=== PATIENT | male | born 1935 | race Caucasian/White ===

== ENCOUNTER 2019-06-06 09:47 | Inpatient (IN) ==
[2019-06-06] MEDS ORDERED: NS 1,000 ML IV ONE ×2 (10:16→11:11)
--- NOTE | 2019-06-06 10:41 | Diag Imaging Result Doc PS360 ---
CHEST-2 VIEWS - 06/06/2019 INDICATION: cough COMPARISON: 04/24/2019 FINDINGS: There has been increase in size of the soft tissue density masslike area in the lingula. This measures about 7 cm. There is new infiltrate in the right upper lobe as well. No pneumothorax or pleural effusion. IMPRESSION: Repeat chest CT recommended, preferably with intravenous contrast. Electronically signed by Ángel Corral 06/06/2019 10:39 AM
[2019-06-06 10:53] LABS: BASO# 0.05 X1000 (0.0-0.2); BASO% 0.1 % (0.0-0.8); EOS% 0.2 % (0.0-10.0); HEMATOCRIT 31.9 % (42.0-52.0); HEMOGLOBIN 10.6 g/dL (14.0-18.0); IMM GRAN# 0.53 X1000 (0.0-0.04); IMM GRAN% 1.2 % (0.0-0.5); LYMPH# 1.47 X1000 (1.2-3.4); LYMPH% 3.2 % (20.5-51.1); MCH 31.1 PG (27-31); MCHC 33.2 g/dL (33-37); MCV 93.5 FL (81-99); MONO# 2.49 X1000 (0.11-0.59); MONO% 5.4 % (1.7-9.3); MPV 8.9 FL (7.4-10.4); NEUT% 89.9 % (42.2-75.2); PLT 494 X1000 (130-400); RBC 3.41 XMIL (4.7-6.1); RDW 15.3 % (11.5-14.5); WBC 45.74 X1000 (4.8-10.8)
[2019-06-06] MEDS ORDERED: NS 500 ML IV ONE (11:11)
[2019-06-06] MEDS ORDERED: MAXIPIME 2 GM in NS 100 ML IV ONE (11:11)
[2019-06-06] MEDS ORDERED: TYLENOL PO PRN (11:14)
[2019-06-06] MEDS ORDERED: ZOFRAN IV PRN (11:14)
[2019-06-06] MEDS ORDERED: VANCOMYCIN IV PER PHARMACY MISC SCH (11:15)
--- NOTE | 2019-06-06 11:23 | PROVIDER DOCUMENTATION ---
This chart was entered by Jocelyn Dolan Scribe, acting as scribe for Domo Carrasco MD. HPI-General Adult - General Chief Complaint: Post Op Complaint Stated Complaint: POST OP COMPLAINT/DR CONTRERAS Time Seen by Provider: 06/06/19 09:59 Source: patient, family ( and daughter) Allergies/Adverse Reactions: Patient Allergies Allergy/AdvReac Type Severity Reaction Status Date / Time butorphanol [From Stadol] Allergy Unknown Verified 06/06/19 10:03 codeine Allergy Unknown Verified 06/06/19 10:03 doxycycline Allergy Unknown Verified 06/06/19 10:03 ibuprofen [From Advil] Allergy Unknown Verified 06/06/19 10:03 Home Medications: Home Medication List Medication Instructions Recorded Confirmed Last Taken Type Allopurinol [Zyloprim] 300 mg PO DAILY 06/06/19 06/06/19 Unknown History Colesevelam [Welchol] 625 mg PO TID 06/06/19 06/06/19 Unknown History Donepezil HCl 10 mg PO DAILY 06/06/19 06/06/19 Unknown History Enalapril Maleate [Vasotec] 5 mg PO BID 06/06/19 06/06/19 Unknown History Memantine [Namenda] 5 mg PO DAILY 06/06/19 06/06/19 Unknown History Pantoprazole [Protonix] 40 mg PO BID 06/06/19 06/06/19 Unknown History Prednisone 5 mg PO TID 06/06/19 06/06/19 Unknown History Spironolactone 12.5 mg PO DAILY 06/06/19 06/06/19 Unknown History Tamsulosin [Flomax] 0.4 mg PO DAILY 06/06/19 06/06/19 Unknown History - History of Present Illness -Gen Adult Nature of Presenting Problems: Pt is a 84 yowm brought into the ED by his and daughter after Dr. Contreras told them to bring him in to be seen for weakness and falling last night. Pt is 2 weeks post op from removal of his left kidney due to cancer. Pt's and daughter stated that the pt has been feeling very weak since and Saturday night fell while trying to go to the bathroom". Pt does not know if he experienced LOC but denies hitting his head. Pt appears dazed and weak but nontoxic in appearance. Location of Pain/Injury: reports: generalized (weakness) Pain Radiation: reports: no radiation Quality of Pain: reports: none Onset/Duration: reports: 2 days ago (started) Timing: reports: getting worse Context/Activities at Onset: reports: light activity Modifying Factors: worse with: movement Associated Symptoms: reports: cough, diarrhea, loss of appetite, shortness of b reath (with movement), syncope, weakness. denies: chest pain, fever/chills, sinus congestion/drainage, nausea, vomiting Similar Symptoms Previously?: No Recently seen or treated by another doctor?: Yes (Dr. Contreras) Review of Systems - Adult - REVIEW OF SYSTEMS - ADULT Constitutional: denies: chills, fever Eyes: reports: no symptoms reported Ears, Nose, Mouth & Throat: reports: no symptoms reported Cardiovascular: reports: see HPI, syncope (Saturday night) Respiratory: reports: see HPI, shortness of breath (w/movement) Gastrointestinal: reports: see HPI, diarrhea (watery for past week). denies: abdominal pain, nausea, vomiting Genitourinary: reports: no symptoms reported Musculoskeletal: reports: see HPI, muscle weakness (generalized) Integumentary: reports: no symptoms reported Neurological: reports: see HPI, loss of balance. denies: dizziness/vertigo, headache/migraines Psychiatric: reports: no symptoms reported Endocrine: reports: no symptoms reported Hematologic/Lymphatic: reports: no symptoms reported Allergic/Immunologic: reports: no symptoms reported All Other Systems: Reviewed and Negative Past History - Adult - PAST MEDICAL HISTORY-ADULT Review of Records: reports: Old Records Reviewed, Nursing Assessment Review, Medications Reviewed, Social history reviewed & non-contributory. Cardiovascular: reports: HTN Gastrointestinal: reports: GERD Neurological: reports: dementia - PRIOR SURGERIES/PROCEDURES Surgical/Procedure History: reports: recent surgery (Left kidney removal due to cancer), cholecystectomy, other (hernia repair) - IMMUNIZATION STATUS Childhood Immunizations: See Nurse Assessment Flu Vaccine: See Nurse Assessment - SOCIAL HISTORY Smoking: non-smoker Substance Use: denies Living Situation: family () Physical Exam-General - PHYSICAL EXAM-ADULT Initial Vital Signs Reviewed: Yes - CONSTITUTIONAL General Appearance: alert, no apparent distress - EYES Eyes: PERRL/EOMI - HEAD, EARS, NOSE, MOUTH & THROAT HENMT: moist mucous membranes - NECK Neck: full range of motion - RESPIRATORY Respiratory: chest non-tender, lungs clear, normal breath sounds - CARDIOVASCULAR Cardiovascular: regular rate, rhythm - GASTROINTESTINAL (ABDOMEN) Abdominal Exam: non tender - MUSCULOSKELETAL Back Exam: no CVA tenderness, no vertebral tenderness Extremity: non-tender - SKIN Integumentary: normal color, normal turgor, warm/dry - PSYCHIATRIC Psych/Mental Status: normal mood/affect, normal thought content, oriented x 3 Progress - PLAN OF CARE/RESULTS Progress/Plan/Lab Results: Vital Signs - 8 hr 06/06/19 09:48 Temperature 98.3 F Pulse Rate 88 Respiratory Rate 20 Blood Pressure 87/40 O2 Sat by Pulse Oximetry 95 Orders Category Date Time Status Cardiac Monitoring DIRECTED Care 06/06/19 10:01 Active ED: Orthostatic Vital Signs (E as directed Care 06/06/19 10:01 Active CHEST-2 VIEWS [RAD] Stat Exams 06/06/19 10:01 Ordered C DIFF TOXIN [STOOL] Stat Lab 06/06/19 10:17 Uncollected CBC WITH ELECTRONIC DIFF [HEME] Stat Lab 06/06/19 10:00 Uncollected CK PROFILE [SP CHEM] Stat Lab 06/06/19 10:00 Uncollected COMPREHENSIVE METABOLIC PANEL [CHEM] Stat Lab 06/06/19 10:00 Uncollected INFLUENZA SCREEN A/B Stat Lab 06/06/19 10:16 Uncollected MAGNESIUM [CHEM] Stat Lab 06/06/19 10:00 Uncollected TROPONIN T Stat Lab 06/06/19 10:00 Uncollected URINALYSIS [URINALYSIS] Stat Lab 06/06/19 10:01 Uncollected 0.9% Sodium Chloride Inj [Ns] 1,000 ml Med 06/06/19 10:30 Ordered IV 150 mls/hr 0.9% Sodium Chloride Inj [Ns] 1,000 ml Med 06/06/19 10:16 Active IV 999 mls/hr EKG [EKG] Stat Ther 06/06/19 10:01 Ordered Result Diagrams: 06/06/19 10:27 - XRAY 1 XRAY Study: Chest Impression: Abnormal (CHEST-2 VIEWS - 06/06/2019 INDICATION: cough COMPARISON: 04/24/2019 FINDINGS: There has been increase in size of the soft tissue density masslike area in the lingula. This measures about 7 cm. There is new infiltrate in the right upper lobe as well. No pneumothorax or pleural effusion. IMPRESSION: Repeat chest CT recommended, preferably with intravenous contrast. Electronically signed by Ángel Corral 06/06/2019 10:39 AM 06/06/19 1039 Interpreting Physician: Ángel Corral MD Dictated Date/Time: 06/06/19 1037 cc: Dequan Contreras MD; Dequan Contreras MD) - CONSULTS/PCP/HOSPITALIST Notification #1 *Consult/PCP/Hospitalist*: Matt Time Discussed: 11:00 Consult Disposition: Will see in ED, Admit Departure - Departure Date of Disposition Decision: 06/06/19 Time of Disposition Decision: 15:00 DIAGNOSIS: Volume depletion, Septic shock Right upper lobe pneumonia Qualifiers: Pneumonia type: due to unspecified organism Qualified Code(s): J18.1 - Lobar pneumonia, unspecified organism Diarrhea Qualifiers: Diarrhea type: unspecified type Qualified Code(s): R19.7 - Diarrhea, unspecified Disposition: ADMITTED INPATIENT 09 Certified Medical Emergency: Emergent Condition: Stable Referrals and Follow-Ups: Dequan Contreras MD [Primary Care Provider] - - Critical Care Note This patient required my direct & personal management of CC.: No Attestation - Physician/ ARTHUR Attestation Patient care was provided by Advanced Practice Provider:: No The physician spent face to face time with patient:: Yes Advanced Practice Provider documentation review:: Supervising physician onsite and consulted in the evaluation and care of this patient. The physician did have a face to face encounter with the patient. This chart was documented by the indicated scribe, (Jocelyn Dolan, Vianney) and accurately reflects the services I performed and decisions made by me, Domo Carrasco MD, as attested by the provider's signature.
[2019-06-06 11:26] LABS: BANDS 7 % (0-1); HYPOCHROM 1+; LYMPHS 4 % (21-51); MONO 4 % (1-9); SEGS 85 % (42-75)
[2019-06-06 11:27] LABS: ANISOCYTOSIS 1+
[2019-06-06 11:34] LABS: ALB/GLOB RATIO 1.7; ALBUMIN 3.3 g/dL (3.5-5.0); CALCIUM 9.6 mg/dL (8.8-10.2); CREATININE 1.6 mg/dL (0.7-1.2); MAGNESIUM 1.5 mg/dL (1.5-2.7); POTASSIUM 4.1 mmol/L (3.5-5.1); TOTAL BILIRUBIN 0.81 mg/dL (0.20-1.00); TOTAL PROTEIN 5.2 g/dL (6.3-8.3)
[2019-06-06] MEDS: NS 1,000 ML IV SCH ×3 (11:34→23:19)
[2019-06-06] MEDS ORDERED: VANCOMYCIN 1 GM/NS 1 GM/250 ML IVPB IV ONE (12:00)
[2019-06-06 12:11] LABS: INR 1.09; PROTIME 14.3 Seconds (11.0-16.0)
[2019-06-06 12:12] LABS: URINE SOURCE CLEAN CATCH
[2019-06-06 12:12] LABS: PTT 33.1 Seconds (22.3-41.8)
[2019-06-06 12:36] LABS: BILIRUBIN URINE NEGATIVE (NEGATIVE); BLOOD URINE NEGATIVE (NEGATIVE); COLOR YELLOW; GLUCOSE URINE NEGATIVE (NEGATIVE); KETONE URINE NEGATIVE (NEGATIVE); LEUKOCYTES URINE NEGATIVE (NEGATIVE); NITRITE URINE NEGATIVE (NEGATIVE); PROTEIN URINE 50 mg/dL (NEGATIVE); SP GRAVITY URINE 1.036; TURBIDITY URINE CLEAR (CLEAR); UROBILINOGEN URINE 2 mg/dL (NORMAL)
[2019-06-06 12:38] LABS: UR EPITHELIAL CELLS <10 /HPF (<10); URINE BACTERIA NEGATIVE /HPF; URINE RBC <10 /HPF (<10); URINE WBC <10 /HPF (<10)
[2019-06-06] MEDS: DUONEB (A & A) INH SCH ×2 (16:45→21:25)
--- NOTE | 2019-06-06 18:27 | EKG Report ---
Test Performed on : 06/06/2019 4:56:44 PM Test Reason : CP Blood Pressure : / mmHG Vent. Rate : 076 BPM Atrial Rate : 076 BPM P-R Int : 166 ms QRS Dur : 140 ms QT Int : 390 ms P-R-T Axes : 048 -56 019 degrees QTc Int : 438 ms Sinus rhythm. with occasional premature ventricular complexes. and premature atrial complexes. Right bundle branch block Left anterior fascicular block Bifascicular block Septal infarct , age undetermined Abnormal ECG Confirmed by Carmine COPELAND, Mikael ([id number]) on 06/08/2019 8:33:11 AM
--- NOTE | 2019-06-06 21:17 | HISTORY AND PHYSICAL ---
CHIEF COMPLAINT: Weakness. HISTORY OF PRESENT ILLNESS: This 84-year-old white male has been hit with several diagnoses over the last couple months including severe esophageal stricture, lung mass in the lingula and left renal mass. A little over week ago he had resection of his left kidney for renal cell cancer. He is recovering from that and has developed a cough. His family stated that he had severe coughing paroxysms last night with nausea. He has been taking all his medications as prescribed, but his appetite and p.o. intake has been poor. They called me on the morning of admission. I advised them to go to the emergency room. He was immediately noted to be hypotensive, although he is in no distress. Further workup revealed an elevated white cell count of 45,000 and questionable right upper lobe infiltrate in addition to enlargement of the mass/infiltrate seen in the lingula on previous studies. The patient's workup which started a couple months ago has been taken sequentially with an EGD and esophageal dilatation followed by Urology consultation and surgery and concomitantly he saw Dr. Singh for his lung mass and he has been following for that. Due to hypotension, elevated white cell count, and questionable infiltrates in his chest x-ray, the patient is admitted for further workup and treatment. PAST MEDICAL HISTORY: 1. Coronary artery disease, hyperlipidemia. 2. Benign prostatic hyperplasia. 3. Hypertension. 4. Hemorrhoids. 5. Diverticulosis. 6. History of hydrocele. 7. History of gout. 8. History of prostate cancer. 9. Post cholecystectomy syndrome. 10. Dementia. 11. Renal cell carcinoma. 12. 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 PAST SURGICAL HISTORY: 1. Hernia repair. 2. Hydrocele repair in 1982. 3. Ill-defined nasal surgery 1997. 4. Cholecystectomy 2003. 5. Radiation seed implantation for prostate cancer. 6. Left kidney removal 2018 SOCIAL HISTORY: Patient is . He is a nonsmoker for his entire life. He does not use alcohol. FAMILY HISTORY: Osteoporosis. Left kidney removal in 2019. REVIEW OF SYSTEMS: Patient did not have any fever at home that they were able to measure but he did have chills. His p.o. intake has been poor for quite some time and he has been losing weight. He has stated for months or even longer that he has no sense of taste and therefore eating food disgusts him and makes him nauseated. He finds it very difficult to maintain proper nutrition. We hope that this would improve after having EGD with stricture relief but it did not really help much at all. He has been having coughing paroxysms. He denies any shortness of breath. He has had no chest pain or palpitations. He has been nauseated but has not vomited. The family states he has had diarrhea "since his surgery." He was given Colace postoperatively. They think that he was given antibiotics but they are not sure. He has had no genitourinary difficulty. PHYSICAL EXAMINATION: Initial temperature was 98.3 degrees, pulse rate was 88, blood pressure was 187/40, after a liter bolus his blood pressure had gotten up to 112/60. Later during the day his blood pressure continued to climb into more appropriate ranges with additional fluid. The patient later developed fever of 99.1. The patient is alert, oriented, conversive and appropriate. He is in no acute distress. LUNGS: Clear to auscultation all ibarra. There is no wheezing or crackles. CARDIOVASCULAR: Regular. He is not tachycardic. ABDOMEN: Shows bowel sounds are present. He is nontender, nondistended. EXTREMITIES: Show no peripheral edema. Overall he is thin. LABORATORY: White cell count was 45.7 thousand, hemoglobin 10.6, hematocrit 32, sedimentation rate was 30. BUN is 30, creatinine 1.6, glucose 139. Urinalysis was negative. Chest x-ray, questionable infiltrate of the right upper lobe. ASSESSMENT AND PLAN: 1. The patient is hypotensive, profound weakness and elevated white cell count. I have placed this in the position of having to treat the patient as septic. It is unclear the source of his elevated white cell count other than his recent surgery, he does not otherwise appear infected. He is hypotensive most likely by continuing his home blood pressure medications but having very little p.o. intake and having diarrhea. We will continue fluid resuscitation and hold those medications until they are appropriate for use. We will start empiric antibiotics. Cultures have been drawn and sent. 2. We will make appropriate consultations as time goes on and if warranted. 3. Repeat chest x-ray and lab work tomorrow. cc: Dequan Gutierrez MD
[2019-06-07] MEDS: NS 1,000 ML IV SCH ×2 (05:47→14:08)
[2019-06-07 05:52] LABS: BASO# 0.03 X1000 (0.0-0.2); BASO% 0.1 % (0.0-0.8); EOS# 0.34 X1000 (0.0-0.7); EOS% 1.7 % (0.0-10.0); HEMATOCRIT 22.7 % (42.0-52.0); HEMOGLOBIN 7.1 g/dL (14.0-18.0); IMM GRAN# 0.18 X1000 (0.0-0.04); IMM GRAN% 0.9 % (0.0-0.5); LYMPH# 2.54 X1000 (1.2-3.4); LYMPH% 12.4 % (20.5-51.1); MCHC 31.3 g/dL (33-37); MCV 95.8 FL (81-99); MONO# 0.99 X1000 (0.11-0.59); MONO% 4.8 % (1.7-9.3); MPV 8.6 FL (7.4-10.4); NEUT# 16.34 X1000 (1.4-6.5); NEUT% 80.1 % (42.2-75.2); PLT 355 X1000 (130-400); RBC 2.37 XMIL (4.7-6.1); RDW 15.4 % (11.5-14.5); WBC 20.42 X1000 (4.8-10.8)
[2019-06-07 06:09] LABS: ALB/GLOB RATIO 1.2; ALBUMIN 2.3 g/dL (3.5-5.0); CALCIUM 8.3 mg/dL (8.8-10.2); CREATININE 1.2 mg/dL (0.7-1.2); POTASSIUM 3.9 mmol/L (3.5-5.1); TOTAL BILIRUBIN 0.37 mg/dL (0.20-1.00); TOTAL PROTEIN 4.2 g/dL (6.3-8.3)
[2019-06-07 06:49] LABS: LYMPHS 10 % (21-51); MONO 2 % (1-9); SEGS 88 % (42-75)
--- NOTE | 2019-06-07 09:22 | Diag Imaging Result Doc PS360 ---
CHEST-2 VIEWS - 06/07/2019 INDICATION: abnormal cxr COMPARISON: 06/06/2019 FINDINGS: There has been some decrease in the density of the infiltrate in the left midlung. There is also decrease in the faint infiltrate in the right upper lung. No new infiltrates. Heart size remains normal. No large pleural effusion. IMPRESSION: Slight improvement in the bilateral infiltrates. Continued follow-up recommended. Electronically signed by Ángel Corral 06/07/2019 9:19 AM
[2019-06-07] MEDS: DUONEB (A & A) INH SCH ×3 (09:28→19:30)
[2019-06-07 10:21] LABS: IRON SATURATION 13 %; TIBC 160 ug/dL; TOTAL IRON 20 ug/dL (53-167); UNBOUND IRON 140 ug/dL (112-346)
--- NOTE | 2019-06-07 12:40 | PROGRESS NOTE ---
DATE: 06/07/2019 SUBJECTIVE: The patient was a little nauseated after eating this morning. He states that he frequently gets coughing paroxysms after eating but also has random paroxysms through the day and the night unrelated to meal intake. He is a bit nauseated after this occurred. It appeared that he would eat approximately 40% of his meal. OBJECTIVE: Vital Signs: 98.2, 74, 15, 130/43, 100% saturated on room air. Physical Examination: The patient is alert, oriented, conversive, and appropriate. Lungs: Clear. There is no wheezing. Cardiovascular: Regular. Extremities: Show no peripheral edema. Laboratory: White cell count 20.4, hemoglobin 7.1, hematocrit 22.7. BUN 22, creatinine 1.2. Iron is 20, TIBC 160, percent saturation 13, ferritin is 891. ASSESSMENT AND PLAN: 1. Hypotension has largely resolved with increase in fluids and holding his blood pressure medications. He is receiving antibiotics, although we have no clear indication of infection other than the white cell count and hypotension. There are multiple factors which could have influenced both of those issues and hopefully we have resolved these. 2. Despite having diarrhea at home, the patient has had none during the hospitalization. We have thus been unable to test for Clostridium difficile up to this point. All cultures have been drawn and sent. 3. The patient's abnormal chest x-ray looks about the same today. We are going to repeat a chest CT and then consult Dr. Singh in the morning for his opinion. Dr. Singh has seen the patient before in the office. 4. The patient has had a precipitous drop in his hemoglobin. We are going to transfuse 1 unit of packed red cells. Iron level is slightly low. 5. Chronic weight loss. Aware. 6. Antihypertensive will continue to be held. 7. The plan going forward has been discussed thoroughly with the family and they are in agreement with proceeding. cc: Dequan Gutierrez MD
[2019-06-07] MEDS: WELCHOL PO SCH ×2 (14:07→18:12)
--- NOTE | 2019-06-07 15:45 | Diag Imaging Result Doc PS360 ---
CT THORAX W/CONTRAST - 06/07/2019 INDICATION: abnormal cxr, questionable lung mass COMPARISON: 03/18/2019 FINDINGS: There is a persistent peripheral wedge-shaped focal infiltrate in the lingula. This measures 5.3 x 5.6 cm. Both lingular segmental bronchi extend directly into the infiltrate. Airways are overall clear. The esophagus is slightly distended with some amorphous, partially solid-appearing material. There is a narrow point posterior to the heart, questionable a stricture. There are diffuse infiltrates throughout the right lung that appear nonspecific. There are trace pleural effusions. There is a large amount of peritoneal free air. Correlate with recent surgery. IMPRESSION: 1. Significant amount of peritoneal free air. Correlate with recent surgeries. 2. Persistent focal consolidation in the lingula. Bronchoscopy or biopsy recommended. 3. Significant infiltrate throughout the right lung, nonspecific. Trace bilateral pleural effusions. 4. This report was discussed with RT Dionne on 06/07/2019 at 3:40 PM and was readback. This exam was performed using automated exposure control, adjustment of mA or kV according to patient size, and/or use of iterative reconstruction technique Electronically signed by Ángel Corral 06/07/2019 3:43 PM
[2019-06-07] MEDS ORDERED: VANCOMYCIN 1,500 MG in NS 250 ML IV ONE (20:00)
[2019-06-07] MEDS: PROTONIX PO SCH (20:28)
--- NOTE | 2019-06-07 21:59 | PULMONOLOGY CONSULTATION ---
DATE: 06/07/2019 REQUESTING CLINICIAN: DR. Dequan Gutierrez. REASON FOR CONSULTATION: Lung mass in a patient known to you. HISTORY OF PRESENT ILLNESS: Mr. Lacy is an 84-year-old white male, never smoker, who has recently been evaluated in my clinic for a lingular mass. The patient's evaluation has revealed a mass in the lingula along with a 3.5 cm lesion in the kidney. The patient received additional antibiotics for the lingular mass and he is also evaluated by GI service for a dilated esophagus. He did undergo a dilation of a Schatzki ring. The patient's pulmonary evaluation has been interrupted by recent resection of the left kidney last week for a renal cell carcinoma. Patient developed cough and weakness and chills and came to the emergency room yesterday morning. White blood count was significantly elevated at 45,000. He underwent a CT scan of the thorax today which reveals an infiltrate in the right lung, a persistent wedge-like mass/infiltrate in the lingula with a distended esophagus. The patient is without complaints at this time. PAST MEDICAL HISTORY: 1. Lingular mass as per above. 2. Status post recent resection of a presumptive renal cell carcinoma (pathology not yet reviewed). 3. Hypertension. 4. Prostate cancer. 5. Dementia. 6. Skin cancer. 7. Status post cholecystectomy. SOCIAL HISTORY: The patient is a never smoker. He is and has attentive . No alcohol use. FAMILY HISTORY: Noncontributory to current presentation. REVIEW OF SYSTEMS: Noncontributory. PHYSICAL EXAMINATION: General: Reveals a well-developed, well-nourished male resting comfortably and in no distress. The patient has been afebrile since his hospitalization. He was mildly hypotensive on presentation but blood pressure has done well following fluid resuscitation. Blood pressure 118/50, heart rate 85, respiratory rate 22, oxygen saturation 95%. HEENT: Pupils are equal and reactive. Oropharynx appears clear. Neck: Supple. Chest: Reveals crackles in the right base. Cardiac: Regular rate, normal S1, normal S2. Abdomen: Is soft and without hepatosplenomegaly. Extremities: Without edema. LABORATORIES: White blood count today is 20.42 thousand, hemoglobin 7.1 following hydration, platelet count 355,000. Microbiology reveals no new data. Chemistry sodium 135, potassium 3.9, chloride 105, bicarbonate 20, BUN 22, creatinine 1.2. IMPRESSION: An 84-year-old with esophageal dysfunction who has 1. Aspiration pneumonia involving the right lung. 2. Esophageal dilation with probable ongoing esophageal dysfunction. 3. Lingular mass. 4. Status post recent renal surgery. 5. Dementia. DISCUSSION: An 84-year-old with problems outlined above. Patient's lingular mass has not resolved. This may be a lung abscess or may be a bronchiolitis process. However, it has been present for 2 months without resolution and at this juncture I do believe it would be reasonable to pursue a biopsy. The patient has significant leukocytosis which is improving and was likely related to an aspiration event given his history. PLAN: 1. Initiate antibiotics for presumptive aspiration pneumonitis. 2. Recommend CT-guided biopsy. Will delay this until Saturday to allow him to improve from his aspiration pneumonia. cc: MD Dequan Avila MD
[2019-06-08] MEDS: MAXIPIME 1 GM in NS 50 ML IV SCH ×3 (00:26→20:55)
[2019-06-08] MEDS: NS 1,000 ML IV SCH ×3 (00:27→15:42)
[2019-06-08] MEDS: DUONEB (A & A) INH SCH ×4 (02:40→20:44)
[2019-06-08 05:40] LABS: BASO# 0.04 X1000 (0.0-0.2); BASO% 0.3 % (0.0-0.8); EOS# 0.41 X1000 (0.0-0.7); EOS% 2.6 % (0.0-10.0); HEMATOCRIT 25.9 % (42.0-52.0); HEMOGLOBIN 8.3 g/dL (14.0-18.0); IMM GRAN# 0.15 X1000 (0.0-0.04); IMM GRAN% 0.9 % (0.0-0.5); LYMPH# 1.53 X1000 (1.2-3.4); LYMPH% 9.6 % (20.5-51.1); MCH 30.5 PG (27-31); MCV 95.2 FL (81-99); MONO# 1.21 X1000 (0.11-0.59); MONO% 7.6 % (1.7-9.3); MPV 8.8 FL (7.4-10.4); NEUT# 12.64 X1000 (1.4-6.5); PLT 356 X1000 (130-400); RBC 2.72 XMIL (4.7-6.1); RDW 15.4 % (11.5-14.5); WBC 15.98 X1000 (4.8-10.8)
[2019-06-08 05:49] LABS: AGAP 11; BUN 18 mg/dL (8-22); CALCIUM 8.8 mg/dL (8.8-10.2); CHLORIDE 103 mmol/L (98-107); COSMO 272; CREATININE 1.1 mg/dL (0.7-1.2); ESTIMATED GFR > 60; GLUCOSE 100 mg/dL (70-104); POTASSIUM 3.5 mmol/L (3.5-5.1); SODIUM 135 mmol/L (136-145); TCO2 21 mmol/L (25-35)
[2019-06-08 05:50] LABS: INR 1.1; PROTIME 14.4 Seconds (11.0-16.0)
[2019-06-08 05:51] LABS: PTT 39.3 Seconds (22.3-41.8)
[2019-06-08] MEDS: PROTONIX PO SCH ×2 (09:37→20:55)
[2019-06-08] MEDS: WELCHOL PO SCH ×4 (09:38→18:35)
[2019-06-08] MEDS: FLOMAX PO SCH (09:38)
[2019-06-08] MEDS: ZYLOPRIM PO SCH (09:42)
[2019-06-08] MEDS ORDERED: VANCOMYCIN 1,250 MG in NS 250 ML IV SCH (13:00)
[2019-06-08 13:55] LABS: RETIC% 0.83 % (0.8-2.1)
--- NOTE | 2019-06-08 19:27 | PROGRESS NOTE ---
DATE: 06/08/2019 SUBJECTIVE: The patient has no complaints. He slept reasonably well last night. He ate reasonably well this morning. He has had no significant coughing, paroxysms or productive sputum in the interim. OBJECTIVE: Vital Signs: 97.3, 52, 17, 138/52, 100% saturated on room air. Respiratory: The patient's lungs are clear. Cardiovascular: Regular. Abdomen: Shows bowel sounds are present. Extremities: No peripheral edema. LABORATORY DATA: White cell count is 15.98, hemoglobin is 8.3, hematocrit 25.9. Reticulocyte count is barely within the normal range at 0.83, which is surprising given his anemia. Potassium 3.5. No diarrhea reported. IMPRESSION AND PLAN: 1. Pulmonary consultation was performed by Dr. Singh. He felt that after several days of antibiotics that the lingular mass should be biopsied via bronchoscopy. He feels that the right upper lobe infiltrate is patient services representative of a mild aspiration pneumonitis and recommended treatment with antibiotics for aspiration pneumonitis. 2. The patient's anemia is ongoing, although his numbers are slightly better today. His reticulocyte count is barely adequate and certainly appropriate based on the level of his anemia. We may need to have Dr. Whitaker involved with this. Iron level was slightly low. He was transfused 1 unit yesterday. 3. Chronic weight loss. Aware. Plan going forward is to continue antibiotics and other supportive treatment and hopefully undergo bronchoscopy tomorrow. cc: Dequan Gutierrez MD
[2019-06-09] MEDS: NS 1,000 ML IV SCH (02:25)
[2019-06-09] MEDS ORDERED: VANCOMYCIN 1,250 MG in NS 250 ML IV SCH (08:00)
[2019-06-09] MEDS: PROTONIX PO SCH ×2 (08:05→21:26)
[2019-06-09] MEDS: FLOMAX PO SCH (08:05)
[2019-06-09] MEDS: ZYLOPRIM PO SCH (08:05)
[2019-06-09] MEDS: DUONEB (A & A) INH SCH ×3 (09:11→21:46)
--- NOTE | 2019-06-09 11:04 | PROGRESS NOTE ---
DATE: 06/09/2019 SUBJECTIVE: The patient had a good night, slept well. He only had 1 coughing paroxysm during the night, which was nonproductive. He denies any shortness of breath. His appetite is poor to fair. He is struggling to get some nutrition down. OBJECTIVE: Vital Signs: Temperature 97.9, pulse 52, respirations 16, blood pressure 152/55, and 96% saturated on room air. General: On physical exam, the patient is alert, oriented, conversive and appropriate. He appears comfortable. Lungs: Clear. Cardiovascular: Regular. Extremities: Show no peripheral edema. LABORATORIES: None were drawn today. ASSESSMENT AND PLAN: 1. The patient is going to have a percutaneous CT-directed biopsy of the lingular mass or infiltrate that has been present on his CT scans. He is being treated for aspiration pneumonitis of the right upper lobe and seems to be doing well with this. 2. The patient was transfused 1 unit of packed red cells. We will recheck his blood count tomorrow. 3. The patient's chronic weight loss is multifactorial including loss of taste sensation, and I think it is also driven partially by esophageal dysfunction and possible recurrent stricture at the base of his esophagus. He has had this dilated, but that may be an ongoing problem and further nutrition may have to be relegated to PEG tube placement at some point in the future. 4. The patient is off all blood pressure medications and seems to be maintaining a reasonable blood pressure and is having no difficulty as a result of that. 5. Dementia. Aware. 6. Renal cell carcinoma. Aware. cc: Dequan Gutierrez MD
--- NOTE | 2019-06-09 11:14 | Diag Imaging Result Doc PS360 ---
EXAM: CHEST-2 VIEWS 06/09/2019 HISTORY: POST BIOPSY INS/EXP CXR TECHNIQUE: Respiratory expiratory upright chest COMMENT: There is no evidence of pneumothorax or pleural fluid collection on the left. There is additional atelectatic opacity at the right base compared to 06/07/2019. There continues to be free air under the diaphragms as there was on the previous study and the CT examination of 06/07/2019. If anything, the amount of free air under the right hemidiaphragm is slightly greater than on the previous study. There continues to be some ill-defined opacity in the right upper lobe. IMPRESSION: No evidence of biopsy complication. Pneumoperitoneum. Bilateral pulmonary opacities stable since 06/07/2019. Worsened right basilar atelectasis. Electronically signed by Sudhir Nath 06/09/2019 11:11 AM
--- NOTE | 2019-06-09 11:38 | Diag Imaging Result Doc PS360 ---
EXAM: CT GUIDED BIOPSY LUNG 06/09/2019 HISTORY: lingular mass TECHNIQUE: CT-guided biopsy of the lingula COMMENT: The risks and benefits of the procedure including the possibility of bleeding, infection, reaction to lidocaine, or pneumothorax was discussed with the patient and his son and they agreed to the procedure. Following sterile preparation of the skin anteriorly over the left chest and administration 1% lidocaine to the skin and deeper soft tissues, a coaxial Pagano 20-gauge core biopsy needle was employed to obtain four cores from the lingular opacity. The patient experienced mild hemoptysis following the biopsy but there is no other complication. The preliminary images obtained prior to the biopsy demonstrate a worsening of pleural fluid collections bilaterally compared to the previous CT of 06/07/2019. There is also worsening atelectasis or pneumonia in both lower lobes. There is ill-defined opacity in the right upper lobe which appears slightly worse than on the previous examination. There continues to be pneumoperitoneum as it was at the time the previous study. IMPRESSION: 1. Successful CT-guided percutaneous biopsy of the lingula. 2. Worsening atelectasis and/or pneumonia on the right and increasing bilateral pleural effusions. Stable pneumoperitoneum. Electronically signed by Sudhir Nath 06/09/2019 11:36 AM
[2019-06-09] MEDS: MAXIPIME 1 GM in NS 50 ML IV SCH ×2 (11:42→21:27)
[2019-06-09] MEDS: WELCHOL PO SCH ×3 (12:32→21:26)
--- NOTE | 2019-06-09 19:27 | Diag Imaging Result Doc PS360 ---
EXAM: CHEST-2 VIEWS HISTORY: chest bx today TECHNIQUE: Two views COMPARISON: 11:07 AM FINDINGS: No postprocedural pneumothorax. No interval change. IMPRESSION: Stable exam Electronically signed by Americo Altman 06/09/2019 7:25 PM
[2019-06-10 05:21] LABS: BASO# 0.08 X1000 (0.0-0.2); BASO% 0.6 % (0.0-0.8); EOS# 0.35 X1000 (0.0-0.7); EOS% 2.8 % (0.0-10.0); HEMATOCRIT 27.1 % (42.0-52.0); LYMPH# 1.51 X1000 (1.2-3.4); LYMPH% 12.2 % (20.5-51.1); MCH 31.4 PG (27-31); MCHC 33.2 g/dL (33-37); MCV 94.4 FL (81-99); MONO# 1.25 X1000 (0.11-0.59); MONO% 10.1 % (1.7-9.3); MPV 8.6 FL (7.4-10.4); NEUT# 9.18 X1000 (1.4-6.5); NEUT% 74.3 % (42.2-75.2); PLT 332 X1000 (130-400); RBC 2.87 XMIL (4.7-6.1); RDW 15.3 % (11.5-14.5); WBC 12.37 X1000 (4.8-10.8)
[2019-06-10 05:43] LABS: ALB/GLOB RATIO 1.1; ALBUMIN 2.4 g/dL (3.5-5.0); CALCIUM 8.7 mg/dL (8.8-10.2); CREATININE 1.2 mg/dL (0.7-1.2); POTASSIUM 3.3 mmol/L (3.5-5.1); TOTAL BILIRUBIN 0.42 mg/dL (0.20-1.00); TOTAL PROTEIN 4.6 g/dL (6.3-8.3)
[2019-06-10] MEDS: DUONEB (A & A) INH SCH ×4 (07:46→23:30)
[2019-06-10] MEDS: ZYLOPRIM PO SCH (08:38)
[2019-06-10] MEDS: MAXIPIME 1 GM in NS 50 ML IV SCH (08:38)
[2019-06-10] MEDS: FLOMAX PO SCH (08:38)
[2019-06-10] MEDS: PROTONIX PO SCH ×2 (08:38→22:01)
[2019-06-10] MEDS ORDERED: POTASSIUM CHLORIDE 20% LIQUID PO ONE (08:51)
[2019-06-10] MEDS: WELCHOL PO SCH ×3 (11:45→18:33)
--- NOTE | 2019-06-10 12:24 | PROGRESS NOTE ---
DATE: 06/10/2019 SUBJECTIVE: Overnight, the patient has had a few coughing paroxysms. He has had no other gross hemoptysis. He has had no fever. His breathing is fine. He is comfortable. His appetite is poor. I had a long discussion with the family about where we need to go to in this workup. The patient has been referred to a claims service adjustor in [place] by Dr. Levy. OBJECTIVE: Vital Signs: 97.9, 81, 18, 138/53, and 96% saturated on room air. General: The patient is alert, oriented, conversive and appropriate. Lungs: Clear. Cardiovascular: Regular. The site of the biopsy looks fine. Abdomen: Benign. LABORATORY: White cell count 12.37, hemoglobin 9.0, potassium is 3.3, BUN 11, and creatinine 1.2. ASSESSMENT AND PLAN: 1. A CT-directed needle biopsy of the lingular mass/infiltrate has been undertaken. There were no complications. Apparently, no pneumothorax on followup chest x-ray. His lungs are otherwise doing well. 2. The patient has been transfused 1 unit of packed red cells. His hemoglobin is stable, but less than ideal. 3. Chronic weight loss is multifactorial. In review with the patient's family, he often states that if he "eats anymore, he will vomit". He denies any specific spot where food gets stuck, but he feels as if his chest and stomach "fill up" very quickly. He does not have difficulty swallowing, but the patient's family relates that he has had choking spells over the years quite frequently. 4. Dr. Levy performed EGD with esophageal dilatation but the problem remains, and I think he has been referred to [place] for what sounds like esophageal manometry. I will try and talk to Dr. Levy, and see if we can expedite that appointment as it is at present scheduled for 07/09. 5. The patient's blood pressure is stable off of all medications. 6. Dementia, mild. We are aware. 7. Renal cell carcinoma, aware. 8. At the end of our conversation, the patient complained of mouth soreness. We will try some nystatin swish and swallow for that. 9. I am going to liberalize the patient's activity, and have him sitting up with meals with chin tuck swallowing. I am also going to change his antibiotic to an oral format. If he does well today, then we will likely discharge tomorrow. cc: Dequan Gutierrez MD
[2019-06-10] MEDS: MYCOSTATIN SUSP PO SCH ×3 (15:15→22:01)
[2019-06-10] MEDS ORDERED: AUGMENTIN PO SCH (21:00)
[2019-06-10] MEDS: AUGMENTIN LIQUID PO SCH (22:01)
--- NOTE | 2019-06-11 07:20 | Diag Imaging Result Doc PS360 ---
EXAM: CHEST-1 VIEW 06/11/2019 HISTORY: SOB TECHNIQUE: AP portable at 0609 COMMENT: There are coarse opacities in the perihilar portion of the left upper lobe and in the right upper lobe. There is similar appearing opacity in the medial right lower lobe. Compared to the previous study of 06/09/2019, the pneumoperitoneum which was present previously has diminished. Otherwise, there has been no significant change. IMPRESSION: Persistent bilateral opacities as described. Electronically signed by Sudhir Nath 06/11/2019 7:17 AM
[2019-06-11] MEDS: DUONEB (A & A) INH SCH ×2 (08:34→15:56)
[2019-06-11] MEDS: AUGMENTIN LIQUID PO SCH (10:24)
[2019-06-11] MEDS: PROTONIX PO SCH (10:25)
[2019-06-11] MEDS: ZYLOPRIM PO SCH (10:25)
[2019-06-11] MEDS: FLOMAX PO SCH (10:25)
[2019-06-11] MEDS: MYCOSTATIN SUSP PO SCH ×2 (10:25→12:51)
[2019-06-11] MEDS: WELCHOL PO SCH (12:50)
--- NOTE | 2019-06-11 13:14 | Diag Imaging Result Doc PS360 ---
EXAM: BA SWALLOW-ESOPHAGUS INDICATION: RUL infiltrate, hx of 'choking' TECHNIQUE: Oral barium contrast was administered and the bolus was followed with fluoroscopy. Spot images were obtained. COMPARISON: None. FINDINGS: There is a prominent extrinsic filling defect posterior to the upper esophagus seen upon swallowing consistent with cricopharyngeus hypertrophy/spasm. On one swallowing attempt, subglottic penetration was noted. No roberto aspiration was appreciated, however. The upper esophagus is patulous and there were diffuse esophageal spasms seen upon swallowing that is worst distally. There was very delayed passage of barium through the lower esophageal sphincter suggesting some degree of achalasia. No discrete mucosal ulcerations or strictures are identified. IMPRESSION: 1.Prominent cricopharyngeus spasm/hypertrophy. 2.Subglottic contrast penetration but no roberto aspiration was appreciated on this study. Consider evaluation with modified barium swallow. 3.Diffuse esophageal spasm that is worst distally. 4.Significant delayed clearance of barium from the distal esophagus suggesting some degree of achalasia. Electronically signed by Zay Orozco 06/11/2019 1:12 PM
[2019-06-11 14:37] VITALS: BP 132/66
--- NOTE | 2019-06-11 16:32 | DISCHARGE SUMMARY ---
ADMISSION DATE: 06/06/2019 DISCHARGE DATE: DISCHARGE DIAGNOSES: 1. Right upper lobe aspiration pneumonitis. 2. Abnormal CT of the chest. 3. Lung mass in the left lower lobe. 4. History of renal cell carcinoma. 5. Acquired absence of the kidney. 6. Hypotension. 7. Weakness. 8. Chronic weight loss. 9. Achalasia. 10. History of hypertension. CONSULTATIONS: Dr. Singh and Dr. Hameed. OPERATIVE PROCEDURES: Percutaneous CT-guided biopsy of left lingular mass. HOSPITAL COURSE: This 84-year-old white male presented with chronic cough and weakness. He had 1 vomiting event prior to admission. He has a long history of having "choking episodes while eating" but no history of previous aspiration pneumonitis. Workup in the emergency room showed infiltrate in the right upper lobe consistent with aspiration pneumonitis as well as continued presence of a left lingular lung mass or other infiltrative process. The patient was admitted to the hospital also because he was hypotensive and very weak. We held his blood pressure medications and gave him IV fluids for a couple of days, and this seemed to normalize his blood pressure. He did not require any other antihypertensive medications during his hospitalization. It was noted that he was taking an antihypertensive as well as a diuretic, which is probably a bad combination for him over the care home as his weight has diminished. The patient was admitted in workup for chronic weight loss for several months now. He was discovered to have a left lingular mass as described above, as well as a kidney mass. He has, since that time of diagnosing, undergone resection of his kidney with removal of that tumor. 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 This did not really improve his p.o. intake. After fluid resuscitation, the patient seemed to be doing quite well. We had him on antibiotics for aspiration pneumonitis. Although his chest x-ray did not change, his lung exam throughout hospitalization was generally clear with good air movement and no respiratory distress. Dr. Singh was consulted and recommended percutaneous biopsy of the lingular mass. This was undertaken by the radiology department successfully. He did have a tiny bit of hemoptysis postprocedure, but did not have pneumothorax. He did not struggle breathing in any way. At the end of the hospitalization, I ordered a barium swallow which was grossly abnormal and basically showed achalasia but no roberto aspiration with normal swallowing. The patient already has an appointment set up with a doctor in [place] for esophageal manometry at the end of this month. I have an expedited appointment with Dr. Levy for follow-up on this GI issue next week. They are going to give strong considerations to PEG tube placement given his chronic achalasia and the aspiration event which precipitated his hospitalization. The patient is sent home on the liquid Augmentin for 6 days. I have discontinued his blood pressure medications including enalapril and spironolactone. Remainder of his home medications remain the same. During his hospitalization he was instructed on swallowing with chin tuck to avoid further aspiration. The family knows that we are available at any time should any problems arise. Pathology for the patient's lung biopsy was still pending at the time of discharge. We can follow up on this next week with myself and/or Dr. Singh. cc: Dequan Gutierrez MD
== END 2019-06-11 17:02 | disposition home or self-care (01) | DRG 179 ==
LOC: ED 09:47 → 1N 11:40
PROVIDERS: ADMIT Internal Medicine; ATTEND Internal Medicine